=== PATIENT | female | born 1990 | race African-American/Black ===

== ENCOUNTER 2016-08-30 10:40 | Emergency (ER) | payer MEDICARE, MEDICAID ==
[~2016-08-30] VITALS: Ht 165.1 cm; Wt 50.0 kg
[2016-08-30 11:21] VITALS: BP 151/80
[2016-08-30] MEDS ORDERED: ALBUTEROL (0.083%) 2.5MG/3ML NEB HHN STA (11:37)
[2016-08-30] MEDS ORDERED: IPRATROPIUM BROMIDE (0.02%) 0.5MG/2.5ML NEB HHN STA (11:37)
== END 2016-08-30 12:38 | disposition home or self-care (01) ==
LOC: ER 12:20
DX: J02.9 Acute pharyngitis, unspecified (principal); J45.909 Unspecified asthma, uncomplicated; R51 Headache
CPT/HCPCS: 87070; 87430; 87804; 94640; 99284; J7611